=== PATIENT | male | born 1965 | race Caucasian/White ===

== ENCOUNTER 2021-03-10 12:04 | Inpatient (IN) ==
[2021-03-10 14:53] LABS: Basophils % 0.3 %; Hematocrit 31.5 % (37.5-50.1); Hemoglobin 10.6 g/dL (12.9-16.9); Immature Granulocytes % 0.7 % (0-4); Lymphocytes # 0.5 K/mcL (0.6-4.6); Lymphocytes % 15.8 %; Mean Corpuscular HGB Conc 33.7 g/dL (31.6-35.5); Mean Corpuscular Hemoglobin 29.1 pg (28.0-33.3); Mean Corpuscular Volume 86.5 fL (83.0-100.0); Mean Platelet Volume 11.4 fL (9.4-12.4); Monocytes # 0.1 K/mcL (0.0-1.3); Monocytes % 4.3 %; Neutrophils # 2.4 K/mcL (1.6-8.9); Platelet Count 85 K/mcL (140-400); Red Blood Count 3.64 M/mcL (4.19-5.50); Red Cell Distribution Width 15.3 % (11.5-14.5); Segmented Neutrophils % 78.9 %
[2021-03-10 15:10] LABS: Alanine Aminotransferase 9 Units/L (7-52); Albumin 3.2 g/dL (3.5-5.7); Albumin/Globulin Ratio 1.1 (1.1-2.2); Alkaline Phosphatase 90 Units/L (34-104); Aspartate Amino Transferase 35 Units/L (13-39); BUN/Creatinine Ratio 25 (6-26); Bilirubin,Direct 0.2 mg/dL (0.0-0.2); Bilirubin,Indirect 0.5 mg/dL (0.0-1.0); Bilirubin,Total 0.7 mg/dL (0.3-1.0); Blood Urea Nitrogen 15 mg/dL (6-20); Calcium 8.4 mg/dL (8.6-10.3); Carbon Dioxide 24 mEq/L (23-29); Chloride 97 mEq/L (98-107); Globulin 2.9 g/dL (2.4-3.5); Glucose 116 mg/dL (70-105); Osmolality,Calculated 270 (280-300); Potassium 3.4 mEq/L (3.5-5.1); Sodium 129 mEq/L (136-145); Total Protein 6.1 g/dL (6.4-8.9); Troponin I < 0.03 ng/mL (< 0.04); eGFR For African Americans > 60 (> 60); eGFR For Non-African Americans > 60 (> 60)
[2021-03-10 15:11] LABS: Thyroid Stimulating Hormone 2.131 mcIU/mL (0.340-5.600)
[2021-03-10 15:16] LABS: Influenza A PCR Negative (Negative); Influenza B PCR Negative (Negative); Resp. Syncytial Virus PCR Negative (Negative); SARS-CoV-2 by PCR (In House) Negative (Negative)
[2021-03-10 15:42] LABS: Bacteria,Urine Few per hpf (None-Few); Bilirubin,Urine Small (Negative); Blood,Urine Negative (Negative); Calcium Oxalate Crystals,Urine Present per hpf; Clarity,Urine Turbid (Clear); Color,Urine Yellow (Yellow); Glucose,Urine (UA) Normal (Normal); Hyaline Casts,Urine Few per lpf (None Seen); Ketones,Urine Negative (Negative); Leukocyte Esterase,Urine Negative (Negative); Mucus,Urine Many per lpf (None-Few); Nitrite,Urine Negative (Negative); Protein,Urine 50 mg/dL (Neg-Trace); Renal Epithelial Cells,Urine Few per hpf (None-Few); Specific Gravity,Urine > 1.030 (1.010-1.025)
[2021-03-10] MEDS ORDERED: 0.9 % Sodium Chloride 500 ML IVC ONE (15:56)
[2021-03-10] MEDS ORDERED: Naloxone 0.4 MG/ML INJ IVP PRN (19:50)
[2021-03-10] MEDS ORDERED: Ondansetron ODT 4 MG TAB.RAPDIS SL PRN (19:50)
[2021-03-10 21:55] LABS: Magnesium 2.1 mg/dL (1.6-2.6); Phosphorous 3.8 mg/dL (2.7-4.5)
[2021-03-10 21:57] LABS: Creatine Kinase 185 Units/L (30-223); Lipase 33 Units/L (11-82)
[2021-03-10] MEDS: 0.9 % Sodium Chloride 1,000 ML IVC SCH (23:45)
[2021-03-11 05:35] LABS: Hematocrit 27.4 % (37.5-50.1); Hemoglobin 9.1 g/dL (12.9-16.9); Mean Corpuscular HGB Conc 33.2 g/dL (31.6-35.5); Mean Corpuscular Hemoglobin 29.6 pg (28.0-33.3); Mean Corpuscular Volume 89.3 fL (83.0-100.0); Red Blood Count 3.07 M/mcL (4.19-5.50); Red Cell Distribution Width 15.7 % (11.5-14.5); White Blood Count 3.4 K/mcL (4.3-11.1)
[2021-03-11 05:36] LABS: Platelet Count 71 K/mcL (140-400)
[2021-03-11 05:56] LABS: Albumin 2.8 g/dL (3.5-5.7); Albumin/Globulin Ratio 1.1 (1.1-2.2); Bilirubin,Direct 0.3 mg/dL (0.0-0.2); Bilirubin,Indirect 0.4 mg/dL (0.0-1.0); Bilirubin,Total 0.7 mg/dL (0.3-1.0); Chol/HDL Ratio 10.1 (0-4.9); Globulin 2.5 g/dL (2.4-3.5); Total Protein 5.3 g/dL (6.4-8.9)
[2021-03-11 05:58] LABS: BUN/Creatinine Ratio 18 (6-26); Blood Urea Nitrogen 13 mg/dL (6-20); Calcium 8.1 mg/dL (8.6-10.3); Carbon Dioxide 26 mEq/L (23-29); Chloride 99 mEq/L (98-107); Glucose 97 mg/dL (70-105); Osmolality,Calculated 274 (280-300); Potassium 3.6 mEq/L (3.5-5.1); Sodium 132 mEq/L (136-145); eGFR For African Americans > 60 (> 60); eGFR For Non-African Americans > 60 (> 60)
[2021-03-11 06:57] LABS: Anisocytosis 1+ (Not Present); Lymphocytes # 0.6 K/mcL (0.6-4.6); Monocytes # 0.2 K/mcL (0.0-1.3); Neutrophils # 2.6 K/mcL (1.6-8.9); Platelet Estimate Decreased (Normal); Reactive Lymphocytes Present (Not Present); Toxic Granulation Present (Not Present)
[2021-03-11] MEDS: Sulfamethoxazole/Trimeth SS 1 TAB PO SCH (08:09)
[2021-03-11] MEDS: Nystatin SUSP 5 ML UD.LIQ PO SCH ×4 (08:09→23:36)
[2021-03-11] MEDS: 0.9 % Sodium Chloride 1,000 ML IVC SCH ×2 (08:10→17:30)
[2021-03-11] MEDS ORDERED: Azithromycin 500 MG in 0.9 % Sodium Chloride 250 ML IVPB SCH (09:00)
[2021-03-11] MEDS ORDERED: Azithromycin 250 MG TABLET PO ONE (13:18)
[2021-03-11] MEDS ORDERED: Isovue-370 500 ML BOTTLE IVP ONE ×2 (15:50→15:57)
[2021-03-11] MEDS: Piperacillin/Tazobactam 3.375 GM in 0.9 % Sodium Chloride Mini Bag 100 ML IVPB SCH ×2 (16:33→23:48)
[2021-03-11] MEDS: Acetaminophen 325 MG TABLET PO PRN (16:33)
[2021-03-11] MEDS: Melatonin 3 MG TABLET PO PRN (23:38)
[2021-03-12 07:34] LABS: Hematocrit 26.7 % (37.5-50.1); Hemoglobin 8.7 g/dL (12.9-16.9); Immature Platelets 3.8 % (1.1-6.1); Mean Corpuscular HGB Conc 32.6 g/dL (31.6-35.5); Mean Corpuscular Hemoglobin 28.8 pg (28.0-33.3); Mean Corpuscular Volume 88.4 fL (83.0-100.0); Mean Platelet Volume 11.3 fL (9.4-12.4); Red Blood Count 3.02 M/mcL (4.19-5.50); Red Cell Distribution Width 15.4 % (11.5-14.5); White Blood Count 1.9 K/mcL (4.3-11.1)
[2021-03-12 07:36] LABS: Platelet Count 63 K/mcL (140-400)
[2021-03-12 07:49] LABS: Alanine Aminotransferase 10 Units/L (7-52); Albumin 2.5 g/dL (3.5-5.7); Alkaline Phosphatase 127 Units/L (34-104); Aspartate Amino Transferase 43 Units/L (13-39); BUN/Creatinine Ratio 20 (6-26); Bilirubin,Total 0.6 mg/dL (0.3-1.0); Blood Urea Nitrogen 12 mg/dL (6-20); Calcium 7.7 mg/dL (8.6-10.3); Carbon Dioxide 25 mEq/L (23-29); Chloride 102 mEq/L (98-107); Globulin 2.6 g/dL (2.4-3.5); Glucose 94 mg/dL (70-105); Osmolality,Calculated 274 (280-300); Phosphorous 3.3 mg/dL (2.7-4.5); Potassium 3.4 mEq/L (3.5-5.1); Sodium 132 mEq/L (136-145); Total Protein 5.1 g/dL (6.4-8.9); eGFR For African Americans > 60 (> 60); eGFR For Non-African Americans > 60 (> 60)
[2021-03-12 08:12] LABS: Lymphocytes # 0.2 K/mcL (0.6-4.6); Neutrophils # 1.6 K/mcL (1.6-8.9); Platelet Estimate Decreased (Normal)
[2021-03-12 08:13] LABS: Ovalocytes 2+ (Not Present)
[2021-03-12] MEDS: Piperacillin/Tazobactam 3.375 GM in 0.9 % Sodium Chloride Mini Bag 100 ML IVPB SCH ×2 (08:24→16:57)
[2021-03-12] MEDS: 0.9 % Sodium Chloride 1,000 ML IVC SCH (08:26)
[2021-03-12] MEDS: Nystatin SUSP 5 ML UD.LIQ PO SCH ×4 (09:04→20:39)
[2021-03-12] MEDS: Sulfamethoxazole/Trimeth SS 1 TAB PO SCH (09:06)
[2021-03-12 17:02] LABS: Basophils % 0.5 %; Hemoglobin 9.5 g/dL (12.9-16.9); Mean Corpuscular Volume 88.9 fL (83.0-100.0)
[2021-03-12 17:03] LABS: Hematocrit 27.9 % (37.5-50.1); Immature Platelets 3.2 % (1.1-6.1); Lymphocytes # 0.5 K/mcL (0.6-4.6); Lymphocytes % 25.2 %; Mean Corpuscular HGB Conc 34.1 g/dL (31.6-35.5); Mean Corpuscular Hemoglobin 30.3 pg (28.0-33.3); Monocytes # 0.1 K/mcL (0.0-1.3); Monocytes % 5.4 %; Neutrophils # 1.4 K/mcL (1.6-8.9); Red Blood Count 3.14 M/mcL (4.19-5.50); Red Cell Distribution Width 15.5 % (11.5-14.5); Segmented Neutrophils % 67.9 %
[2021-03-12 17:11] LABS: Platelet Count 69 K/mcL (140-400)
[2021-03-12 17:33] LABS: Platelet Estimate Decreased (Normal)
[2021-03-12 17:37] LABS: Toxic Granulation Present (Not Present)
[2021-03-12] MEDS: Melatonin 3 MG TABLET PO PRN (20:39)
[2021-03-12] MEDS: Acetaminophen 325 MG TABLET PO PRN (20:39)
[2021-03-13] MEDS: Piperacillin/Tazobactam 3.375 GM in 0.9 % Sodium Chloride Mini Bag 100 ML IVPB SCH ×3 (00:18→17:36)
[2021-03-13] MEDS: Acetaminophen 325 MG TABLET PO PRN ×2 (04:30→21:33)
[2021-03-13] MEDS: Sulfamethoxazole/Trimeth SS 1 TAB PO SCH (09:21)
[2021-03-13] MEDS: Nystatin SUSP 5 ML UD.LIQ PO SCH ×4 (09:21→21:33)
[2021-03-13 12:04] LABS: INR 1.3; Prothrombin Time 14.5 Seconds (9.4-12.1)
[2021-03-13] MEDS: Gabapentin 100 MG CAPSULE PO SCH ×2 (13:43→21:33)
[2021-03-13 15:03] LABS: Hematocrit 33.1 % (37.5-50.1); Hemoglobin 11.2 g/dL (12.9-16.9); Immature Platelets 3.4 % (1.1-6.1); Mean Corpuscular HGB Conc 33.8 g/dL (31.6-35.5); Mean Corpuscular Hemoglobin 29.6 pg (28.0-33.3); Mean Corpuscular Volume 87.3 fL (83.0-100.0); Mean Platelet Volume 11.4 fL (9.4-12.4); Red Blood Count 3.79 M/mcL (4.19-5.50); Red Cell Distribution Width 15.4 % (11.5-14.5); White Blood Count 2.3 K/mcL (4.3-11.1)
[2021-03-13 15:20] LABS: BUN/Creatinine Ratio 20 (6-26); Blood Urea Nitrogen 11 mg/dL (6-20); Calcium 7.8 mg/dL (8.6-10.3); Carbon Dioxide 25 mEq/L (23-29); Chloride 100 mEq/L (98-107); Glucose 90 mg/dL (70-105); Osmolality,Calculated 269 (280-300); Potassium 3.7 mEq/L (3.5-5.1); Sodium 130 mEq/L (136-145); eGFR For African Americans > 60 (> 60); eGFR For Non-African Americans > 60 (> 60)
[2021-03-13] MEDS: Melatonin 3 MG TABLET PO PRN (21:33)
[2021-03-14] MEDS: Piperacillin/Tazobactam 3.375 GM in 0.9 % Sodium Chloride Mini Bag 100 ML IVPB SCH ×3 (00:03→16:03)
[2021-03-14 03:06] LABS: Hematocrit 33.4 % (37.5-50.1); Hemoglobin 11.1 g/dL (12.9-16.9); Immature Platelets 3.5 % (1.1-6.1); Mean Corpuscular HGB Conc 33.2 g/dL (31.6-35.5); Mean Corpuscular Hemoglobin 29.1 pg (28.0-33.3); Mean Corpuscular Volume 87.7 fL (83.0-100.0); Mean Platelet Volume 11.2 fL (9.4-12.4); Red Blood Count 3.81 M/mcL (4.19-5.50); Red Cell Distribution Width 15.4 % (11.5-14.5); White Blood Count 2.3 K/mcL (4.3-11.1)
[2021-03-14] MEDS: Acetaminophen 325 MG TABLET PO PRN ×2 (03:11→21:22)
[2021-03-14 03:27] LABS: BUN/Creatinine Ratio 18 (6-26); Blood Urea Nitrogen 11 mg/dL (6-20); Carbon Dioxide 27 mEq/L (23-29); Chloride 99 mEq/L (98-107); Glucose 96 mg/dL (70-105); Osmolality,Calculated 267 (280-300); Sodium 129 mEq/L (136-145); eGFR For African Americans > 60 (> 60); eGFR For Non-African Americans > 60 (> 60)
[2021-03-14] MEDS: Nystatin SUSP 5 ML UD.LIQ PO SCH ×4 (07:40→21:06)
[2021-03-14] MEDS: Gabapentin 100 MG CAPSULE PO SCH (07:41)
[2021-03-14] MEDS: Sulfamethoxazole/Trimeth SS 1 TAB PO SCH (07:41)
[2021-03-14] MEDS ORDERED: Gabapentin 100 MG CAPSULE PO ONE (09:44)
[2021-03-14] MEDS: Furosemide 20 MG TABLET PO SCH (10:24)
[2021-03-14 10:33] LABS: Lactate Dehydrogenase 325 Units/L (140-271); Uric Acid 1.7 mg/dL (2.3-7.6)
[2021-03-14] MEDS: Gabapentin 300 MG CAPSULE PO SCH ×2 (16:03→21:06)
[2021-03-15] MEDS: Piperacillin/Tazobactam 3.375 GM in 0.9 % Sodium Chloride Mini Bag 100 ML IVPB SCH ×4 (00:24→23:57)
[2021-03-15] MEDS: 0.9 % Sodium Chloride 500 ML IVC ONE (00:25)
[2021-03-15 01:45] LABS: Hematocrit 27.7 % (37.5-50.1); Hemoglobin 9.3 g/dL (12.9-16.9); Immature Platelets 3.4 % (1.1-6.1); Mean Corpuscular HGB Conc 33.6 g/dL (31.6-35.5); Mean Corpuscular Hemoglobin 29.3 pg (28.0-33.3); Mean Corpuscular Volume 87.4 fL (83.0-100.0); Mean Platelet Volume 10.5 fL (9.4-12.4); Red Blood Count 3.17 M/mcL (4.19-5.50); Red Cell Distribution Width 15.4 % (11.5-14.5); White Blood Count 1.6 K/mcL (4.3-11.1)
[2021-03-15 01:57] LABS: BUN/Creatinine Ratio 19 (6-26); Blood Urea Nitrogen 15 mg/dL (6-20); Calcium 7.4 mg/dL (8.6-10.3); Carbon Dioxide 25 mEq/L (23-29); Chloride 98 mEq/L (98-107); Glucose 110 mg/dL (70-105); Osmolality,Calculated 269 (280-300); Sodium 129 mEq/L (136-145); eGFR For African Americans > 60 (> 60); eGFR For Non-African Americans > 60 (> 60)
[2021-03-15] MEDS ORDERED: *HR* Metoprolol 5 MG/5 ML VIAL IVP ONE (05:48)
[2021-03-15] MEDS: Sulfamethoxazole/Trimeth SS 1 TAB PO SCH (08:53)
[2021-03-15] MEDS: Gabapentin 300 MG CAPSULE PO SCH ×3 (08:53→20:32)
[2021-03-15] MEDS: Nystatin SUSP 5 ML UD.LIQ PO SCH ×4 (08:53→20:32)
[2021-03-15] MEDS: Furosemide 20 MG TABLET PO SCH (08:53)
[2021-03-15 08:59] LABS: VBG Ionized Calcium 1.09 mmol/L (1.15-1.35)
[2021-03-15 10:43] LABS: Magnesium 1.9 mg/dL (1.6-2.6); Phosphorous 3.5 mg/dL (2.7-4.5)
[2021-03-16] MEDS: Acetaminophen 325 MG TABLET PO PRN ×2 (04:14→15:59)
[2021-03-16 05:37] LABS: Hematocrit 27.1 % (37.5-50.1); Hemoglobin 9.2 g/dL (12.9-16.9); Immature Platelets 4.2 % (1.1-6.1); Mean Corpuscular HGB Conc 33.9 g/dL (31.6-35.5); Mean Corpuscular Hemoglobin 29.2 pg (28.0-33.3); Mean Platelet Volume 11.2 fL (9.4-12.4); Red Blood Count 3.15 M/mcL (4.19-5.50); Red Cell Distribution Width 15.4 % (11.5-14.5); White Blood Count 1.9 K/mcL (4.3-11.1)
[2021-03-16 05:50] LABS: BUN/Creatinine Ratio 23 (6-26); Blood Urea Nitrogen 15 mg/dL (6-20); Calcium 7.6 mg/dL (8.6-10.3); Carbon Dioxide 25 mEq/L (23-29); Chloride 94 mEq/L (98-107); Glucose 106 mg/dL (70-105); Osmolality,Calculated 261 (280-300); Potassium 3.9 mEq/L (3.5-5.1); Sodium 125 mEq/L (136-145); eGFR For African Americans > 60 (> 60); eGFR For Non-African Americans > 60 (> 60)
[2021-03-16] MEDS: Piperacillin/Tazobactam 3.375 GM in 0.9 % Sodium Chloride Mini Bag 100 ML IVPB SCH ×2 (09:54→15:18)
[2021-03-16] MEDS: Gabapentin 300 MG CAPSULE PO SCH ×3 (09:55→20:19)
[2021-03-16] MEDS: Sulfamethoxazole/Trimeth SS 1 TAB PO SCH (09:55)
[2021-03-16] MEDS: Furosemide 20 MG TABLET PO SCH (09:55)
[2021-03-16] MEDS: Nystatin SUSP 5 ML UD.LIQ PO SCH ×4 (09:55→20:15)
[2021-03-16 14:31] LABS: Toxoplasma gondii Ab, IgG <3.0 IU/mL; Toxoplasma gondii Ab, IgM <3.0 AU/mL (<=7.9)
[2021-03-16] MEDS ORDERED: Vancomycin (wt based) 1,000 MG VIAL IVPB SCH (17:00)
[2021-03-16] MEDS ORDERED: 0.9 % Sodium Chloride 1,000 ML IV ONE (19:54)
[2021-03-17] MEDS: Piperacillin/Tazobactam 3.375 GM in 0.9 % Sodium Chloride Mini Bag 100 ML IVPB SCH ×3 (01:18→17:36)
[2021-03-17] MEDS ORDERED: 0.9 % Sodium Chloride 1,000 ML IVC ONE (03:30)
[2021-03-17 05:43] LABS: Hematocrit 23.7 % (37.5-50.1); Hemoglobin 7.8 g/dL (12.9-16.9); Mean Corpuscular HGB Conc 32.9 g/dL (31.6-35.5); Mean Corpuscular Hemoglobin 29.3 pg (28.0-33.3); Mean Corpuscular Volume 89.1 fL (83.0-100.0); Mean Platelet Volume 10.2 fL (9.4-12.4); Red Blood Count 2.66 M/mcL (4.19-5.50); Red Cell Distribution Width 15.4 % (11.5-14.5); White Blood Count 1.4 K/mcL (4.3-11.1)
[2021-03-17 05:45] LABS: Platelet Count 49 K/mcL (140-400)
[2021-03-17 07:54] LABS: BUN/Creatinine Ratio 19 (6-26); Blood Urea Nitrogen 13 mg/dL (6-20); Calcium 7.1 mg/dL (8.6-10.3); Carbon Dioxide 26 mEq/L (23-29); Chloride 99 mEq/L (98-107); Glucose 114 mg/dL (70-105); Osmolality,Calculated 269 (280-300); Potassium 3.7 mEq/L (3.5-5.1); Sodium 129 mEq/L (136-145); eGFR For African Americans > 60 (> 60); eGFR For Non-African Americans > 60 (> 60)
[2021-03-17] MEDS: Gabapentin 300 MG CAPSULE PO SCH ×3 (08:42→21:26)
[2021-03-17] MEDS: Nystatin SUSP 5 ML UD.LIQ PO SCH ×3 (08:42→17:37)
[2021-03-17] MEDS: Sulfamethoxazole/Trimeth SS 1 TAB PO SCH (08:42)
[2021-03-17] MEDS ORDERED: 0.9 % Sodium Chloride 500 ML ONE ×2 (14:15→16:30)
[2021-03-17] MEDS: 0.9 % Sodium Chloride 500 ML IVC ONE ×2 (14:16→15:57)
[2021-03-17 14:18] LABS: Influenza A PCR Negative (Negative); Influenza B PCR Negative (Negative); Resp. Syncytial Virus PCR Negative (Negative); SARS-CoV-2 by PCR (In House) Negative (Negative)
[2021-03-17 14:42] LABS: HIV-1 Viral Load Interp DETECTED (Not Detected)
[2021-03-17] MEDS ORDERED: Ringers Solution, Lactated 500 ML IV ONE (16:30)
[2021-03-17 17:08] LABS: VBG Ionized Calcium 1.11 mmol/L (1.15-1.35)
[2021-03-17] MEDS ORDERED: *HR* Metoprolol 5 MG/5 ML VIAL IVP ONE (17:24)
[2021-03-17 17:37] LABS: BUN/Creatinine Ratio 22 (6-26); Blood Urea Nitrogen 13 mg/dL (6-20); Calcium 7.7 mg/dL (8.6-10.3); Carbon Dioxide 26 mEq/L (23-29); Chloride 95 mEq/L (98-107); Glucose 96 mg/dL (70-105); Osmolality,Calculated 262 (280-300); Potassium 4.4 mEq/L (3.5-5.1); Sodium 126 mEq/L (136-145); eGFR For African Americans > 60 (> 60); eGFR For Non-African Americans > 60 (> 60)
[2021-03-17] MEDS: Acetaminophen 325 MG TABLET PO PRN (17:57)
[2021-03-17] MEDS: levoFLOXacin 500 MG TABLET PO SCH (19:35)
[2021-03-17] MEDS: D5% in Water 50 ML IVPB SCH ×2 (21:21→23:35)
[2021-03-17] MEDS: AMPHOTERICIN B LIPID COMPLEX IVPB SCH (21:30)
[2021-03-17] MEDS: D5 IVPB SCH (21:30)
[2021-03-17] MEDS: WATER IVPB SCH (21:30)
[2021-03-17] MEDS ORDERED: Calcium Gluconate 1gm/50mL 1 GM/50 ML BAG IVPB ONE (23:18)
[2021-03-18] MEDS: Acetaminophen 325 MG TABLET PO PRN (01:21)
[2021-03-18] MEDS ORDERED: 0.9 % Sodium Chloride 1,000 ML IVC ONE (04:18)
[2021-03-18 04:49] LABS: BUN/Creatinine Ratio 24 (6-26); Blood Urea Nitrogen 15 mg/dL (6-20); Calcium 7.7 mg/dL (8.6-10.3); Carbon Dioxide 23 mEq/L (23-29); Chloride 99 mEq/L (98-107); Glucose 96 mg/dL (70-105); Osmolality,Calculated 267 (280-300); Potassium 3.7 mEq/L (3.5-5.1); Sodium 128 mEq/L (136-145); eGFR For African Americans > 60 (> 60); eGFR For Non-African Americans > 60 (> 60)
[2021-03-18 04:53] LABS: Mean Corpuscular Hemoglobin 29.7 pg (28.0-33.3)
[2021-03-18 04:55] LABS: Hematocrit 27.2 % (37.5-50.1); Hemoglobin 9.2 g/dL (12.9-16.9); Immature Platelets 5.3 % (1.1-6.1); Mean Corpuscular HGB Conc 33.8 g/dL (31.6-35.5); Mean Corpuscular Volume 87.7 fL (83.0-100.0); Red Cell Distribution Width 15.2 % (11.5-14.5)
[2021-03-18 05:05] LABS: INR 1.2; Prothrombin Time 12.9 Seconds (9.4-12.1)
[2021-03-18 05:17] LABS: Platelet Count 47 K/mcL (140-400)
[2021-03-18] MEDS: levoFLOXacin 500 MG TABLET PO SCH (08:36)
[2021-03-18] MEDS: Gabapentin 300 MG CAPSULE PO SCH ×3 (08:36→19:59)
[2021-03-18] MEDS: Sulfamethoxazole/Trimeth SS 1 TAB PO SCH (08:36)
[2021-03-18 15:00] LABS: Cytomegalovirus DNA (PCR) DETECTED
[2021-03-18] MEDS: Albumin 25% 25gram/100mL 25 GM/100 ML IV.SOLN IVC SCH ×2 (15:34→16:45)
[2021-03-18] MEDS ORDERED: *HR* Dextrose 50 % in Water (Vial) 50 ML VIAL ONE (20:20)
[2021-03-18] MEDS: D5% in Water 50 ML IVPB SCH (21:02)
[2021-03-18] MEDS: WATER IVPB SCH (21:10)
[2021-03-18] MEDS: D5 IVPB SCH (21:10)
[2021-03-18] MEDS: AMPHOTERICIN B LIPID COMPLEX IVPB SCH (21:10)
[2021-03-18] MEDS ORDERED: Acetaminophen IV 1,000 MG/100 ML BAG IVPB ONE (23:58)
[2021-03-19] MEDS ORDERED: methylPREDNISolone 125 MG/2 ML VIAL IVP ONE (00:28)
[2021-03-19] MEDS ORDERED: *HR* Metoprolol 5 MG/5 ML VIAL IVP ONE (01:48)
[2021-03-19] MEDS: Acetaminophen 325 MG TABLET PO PRN (01:59)
[2021-03-19 05:43] LABS: Hematocrit 24.8 % (37.5-50.1); Hemoglobin 8.3 g/dL (12.9-16.9); Lymphocytes # 0.3 K/mcL (0.6-4.6); Lymphocytes % 28.7 %; Mean Corpuscular HGB Conc 33.5 g/dL (31.6-35.5); Mean Corpuscular Hemoglobin 29.3 pg (28.0-33.3); Mean Corpuscular Volume 87.6 fL (83.0-100.0); Mean Platelet Volume 10.5 fL (9.4-12.4); Neutrophils # 0.7 K/mcL (1.6-8.9); Red Blood Count 2.83 M/mcL (4.19-5.50); Red Cell Distribution Width 15.4 % (11.5-14.5); Segmented Neutrophils % 66.3 %
[2021-03-19 05:46] LABS: Platelet Count 51 K/mcL (140-400)
[2021-03-19 06:02] LABS: Alanine Aminotransferase 7 Units/L (7-52); Albumin 2.7 g/dL (3.5-5.7); Albumin 2.8 g/dL (3.5-5.7); Albumin/Globulin Ratio 1.1 (1.1-2.2); Alkaline Phosphatase 97 Units/L (34-104); Aspartate Amino Transferase 28 Units/L (13-39); BUN/Creatinine Ratio 24 (6-26); Bilirubin,Direct 0.2 mg/dL (0.0-0.2); Bilirubin,Indirect 0.3 mg/dL (0.0-1.0); Bilirubin,Total 0.5 mg/dL (0.3-1.0); Blood Urea Nitrogen 15 mg/dL (6-20); Calcium 7.9 mg/dL (8.6-10.3); Carbon Dioxide 26 mEq/L (23-29); Chloride 100 mEq/L (98-107); Globulin 2.6 g/dL (2.4-3.5); Globulin 2.7 g/dL (2.4-3.5); Glucose 136 mg/dL (70-105); Lactate Dehydrogenase 275 Units/L (140-271); Magnesium 2.2 mg/dL (1.6-2.6); Osmolality,Calculated 275 (280-300); Phosphorous 4.1 mg/dL (2.7-4.5); Potassium 3.8 mEq/L (3.5-5.1); Sodium 131 mEq/L (136-145); Total Protein 5.4 g/dL (6.4-8.9); eGFR For African Americans > 60 (> 60); eGFR For Non-African Americans > 60 (> 60)
[2021-03-19] MEDS: Sulfamethoxazole/Trimeth SS 1 TAB PO SCH (07:38)
[2021-03-19] MEDS: Gabapentin 300 MG CAPSULE PO SCH ×3 (07:40→20:14)
[2021-03-19] MEDS: levoFLOXacin 500 MG TABLET PO SCH (07:40)
[2021-03-19] MEDS: D5% in Water 50 ML IVPB SCH (22:28)
[2021-03-19] MEDS: WATER IVPB SCH (22:48)
[2021-03-19] MEDS: AMPHOTERICIN B LIPID COMPLEX IVPB SCH (22:48)
[2021-03-19] MEDS: D5 IVPB SCH (22:48)
[2021-03-20] MEDS: D5% in Water 50 ML IVPB SCH ×3 (01:00→21:33)
[2021-03-20 06:17] LABS: Albumin 2.8 g/dL (3.5-5.7); Albumin/Globulin Ratio 1.1 (1.1-2.2); Bilirubin,Direct 0.2 mg/dL (0.0-0.2); Bilirubin,Indirect 0.3 mg/dL (0.0-1.0); Bilirubin,Total 0.5 mg/dL (0.3-1.0); Globulin 2.5 g/dL (2.4-3.5); Magnesium 2.4 mg/dL (1.6-2.6); Phosphorous 4.4 mg/dL (2.7-4.5); Total Protein 5.3 g/dL (6.4-8.9)
[2021-03-20] MEDS: levoFLOXacin 500 MG TABLET PO SCH (08:01)
[2021-03-20] MEDS: Sulfamethoxazole/Trimeth SS 1 TAB PO SCH (08:01)
[2021-03-20] MEDS: Gabapentin 300 MG CAPSULE PO SCH ×3 (08:01→19:41)
[2021-03-20 13:10] LABS: Mean Corpuscular Hemoglobin 29.1 pg (28.0-33.3); Red Blood Count 3.09 M/mcL (4.19-5.50)
[2021-03-20 13:12] LABS: Immature Granulocytes % 0.7 % (0-4); Immature Platelets 5.5 % (1.1-6.1); Lymphocytes # 0.3 K/mcL (0.6-4.6); Lymphocytes % 18.7 %; Mean Corpuscular HGB Conc 33.3 g/dL (31.6-35.5); Mean Corpuscular Volume 87.4 fL (83.0-100.0); Monocytes # 0.1 K/mcL (0.0-1.3); Monocytes % 5.8 %; Neutrophils # 1.1 K/mcL (1.6-8.9); Platelet Count 54 K/mcL (140-400); Red Cell Distribution Width 15.5 % (11.5-14.5); Segmented Neutrophils % 74.8 %; White Blood Count 1.4 K/mcL (4.3-11.1)
[2021-03-20 13:29] LABS: Platelet Estimate Decreased (Normal)
[2021-03-20 13:35] LABS: BUN/Creatinine Ratio 39 (6-26); Blood Urea Nitrogen 22 mg/dL (6-20); Carbon Dioxide 19 mEq/L (23-29); Chloride 114 mEq/L (98-107); Glucose 95 mg/dL (70-105); Osmolality,Calculated 291 (280-300); Potassium 2.8 mEq/L (3.5-5.1); Sodium 139 mEq/L (136-145); eGFR For African Americans > 60 (> 60); eGFR For Non-African Americans > 60 (> 60)
[2021-03-20] MEDS ORDERED: Calcium Gluconate 1gm/50mL 1 GM/50 ML BAG IVPB ONE (13:42)
[2021-03-20 18:43] LABS: JC Virus PCR Source BLOOD
[2021-03-20] MEDS: D5 IVPB SCH (19:36)
[2021-03-20] MEDS: WATER IVPB SCH (19:36)
[2021-03-20] MEDS: AMPHOTERICIN B LIPID COMPLEX IVPB SCH (19:36)
[2021-03-20] MEDS: Acetaminophen 325 MG TABLET PO PRN (23:23)
[2021-03-21 04:02] LABS: Hematocrit 24.6 % (37.5-50.1); Hemoglobin 8.1 g/dL (12.9-16.9); Immature Granulocytes % 2.7 % (0-4); Lymphocytes # 0.1 K/mcL (0.6-4.6); Mean Corpuscular HGB Conc 32.9 g/dL (31.6-35.5); Mean Corpuscular Hemoglobin 29.1 pg (28.0-33.3); Mean Corpuscular Volume 88.5 fL (83.0-100.0); Mean Platelet Volume 9.9 fL (9.4-12.4); Monocytes # 0.1 K/mcL (0.0-1.3); Monocytes % 10.7 %; Red Blood Count 2.78 M/mcL (4.19-5.50); Red Cell Distribution Width 15.6 % (11.5-14.5); Segmented Neutrophils % 70.6 %
[2021-03-21 04:10] LABS: Neutrophils # 0.6 K/mcL (1.6-8.9); Platelet Count 52 K/mcL (140-400); White Blood Count 0.8 K/mcL (4.3-11.1)
[2021-03-21 04:19] LABS: BUN/Creatinine Ratio 40 (6-26); Bilirubin,Direct 0.1 mg/dL (0.0-0.2); Bilirubin,Indirect 0.4 mg/dL (0.0-1.0); Bilirubin,Total 0.5 mg/dL (0.3-1.0); Blood Urea Nitrogen 35 mg/dL (6-20); Carbon Dioxide 25 mEq/L (23-29); Chloride 105 mEq/L (98-107); Glucose 99 mg/dL (70-105); Magnesium 2.3 mg/dL (1.6-2.6); Osmolality,Calculated 284 (280-300); Phosphorous 3.4 mg/dL (2.7-4.5); Potassium 3.5 mEq/L (3.5-5.1); Sodium 133 mEq/L (136-145); eGFR For African Americans > 60 (> 60); eGFR For Non-African Americans > 60 (> 60)
[2021-03-21 04:24] LABS: Platelet Estimate Decreased (Normal)
[2021-03-21 04:25] LABS: Poikilocytosis 1+ (Not Present)
[2021-03-21 06:59] LABS: JC Virus Result DETECTED
[2021-03-21] MEDS: Sulfamethoxazole/Trimeth SS 1 TAB PO SCH (08:31)
[2021-03-21] MEDS: Gabapentin 300 MG CAPSULE PO SCH ×3 (08:31→20:30)
[2021-03-21] MEDS: levoFLOXacin 500 MG TABLET PO SCH (08:31)
[2021-03-21] MEDS: Acetaminophen 325 MG TABLET PO PRN (08:36)
[2021-03-21] MEDS ORDERED: Ringers Solution, Lactated 500 ML IVC ONE (11:12)
[2021-03-21] MEDS: D5% in Water 50 ML IVPB SCH (19:13)
[2021-03-22 00:11] LABS: A.galactomannan Ag Index 0.01
[2021-03-22] MEDS: Acetaminophen 325 MG TABLET PO PRN ×2 (04:35→14:15)
[2021-03-22 05:57] LABS: Hemoglobin 8.2 g/dL (12.9-16.9); Red Cell Distribution Width 15.6 % (11.5-14.5)
[2021-03-22 05:58] LABS: Basophils % 0.6 %; Hematocrit 24.6 % (37.5-50.1); Immature Granulocytes % 1.2 % (0-4); Immature Platelets 2.8 % (1.1-6.1); Lymphocytes # 0.3 K/mcL (0.6-4.6); Lymphocytes % 16.4 %; Mean Corpuscular HGB Conc 33.3 g/dL (31.6-35.5); Mean Corpuscular Hemoglobin 29.6 pg (28.0-33.3); Mean Corpuscular Volume 88.8 fL (83.0-100.0); Mean Platelet Volume 10.7 fL (9.4-12.4); Monocytes # 0.1 K/mcL (0.0-1.3); Monocytes % 4.2 %; Neutrophils # 1.3 K/mcL (1.6-8.9); Red Blood Count 2.77 M/mcL (4.19-5.50); Segmented Neutrophils % 77.6 %; White Blood Count 1.7 K/mcL (4.3-11.1)
[2021-03-22 06:05] LABS: Platelet Count 46 K/mcL (140-400)
[2021-03-22 06:27] LABS: BUN/Creatinine Ratio 30 (6-26); Blood Urea Nitrogen 21 mg/dL (6-20); Calcium 8.3 mg/dL (8.6-10.3); Carbon Dioxide 24 mEq/L (23-29); Chloride 101 mEq/L (98-107); Glucose 97 mg/dL (70-105); Osmolality,Calculated 277 (280-300); Potassium 3.9 mEq/L (3.5-5.1); Sodium 132 mEq/L (136-145); eGFR For African Americans > 60 (> 60); eGFR For Non-African Americans > 60 (> 60)
[2021-03-22 06:43] LABS: Poikilocytosis 1+ (Not Present); Tear Drop Cells 1+ (Not Present)
[2021-03-22 06:44] LABS: Platelet Estimate Decreased (Normal)
[2021-03-22] MEDS: Sulfamethoxazole/Trimeth SS 1 TAB PO SCH (10:10)
[2021-03-22] MEDS: levoFLOXacin 500 MG TABLET PO SCH (10:10)
[2021-03-22] MEDS: Gabapentin 300 MG CAPSULE PO SCH ×3 (10:11→22:30)
[2021-03-23] MEDS: Acetaminophen 325 MG TABLET PO PRN (03:40)
[2021-03-23 04:13] LABS: Red Cell Distribution Width 15.6 % (11.5-14.5)
[2021-03-23 04:14] LABS: Hematocrit 23.7 % (37.5-50.1); Immature Platelets 2.8 % (1.1-6.1); Lymphocytes # 0.3 K/mcL (0.6-4.6); Lymphocytes % 28.6 %; Mean Corpuscular HGB Conc 33.8 g/dL (31.6-35.5); Mean Corpuscular Hemoglobin 29.7 pg (28.0-33.3); Mean Corpuscular Volume 88.1 fL (83.0-100.0); Mean Platelet Volume 10.8 fL (9.4-12.4); Monocytes # 0.1 K/mcL (0.0-1.3); Monocytes % 6.1 %; Neutrophils # 0.6 K/mcL (1.6-8.9); Red Blood Count 2.69 M/mcL (4.19-5.50); Segmented Neutrophils % 63.3 %
[2021-03-23 04:16] LABS: Platelet Count 36 K/mcL (140-400)
[2021-03-23 04:26] LABS: BUN/Creatinine Ratio 32 (6-26); Blood Urea Nitrogen 23 mg/dL (6-20); Calcium 8.1 mg/dL (8.6-10.3); Carbon Dioxide 26 mEq/L (23-29); Chloride 102 mEq/L (98-107); Glucose 122 mg/dL (70-105); Osmolality,Calculated 275 (280-300); Potassium 3.9 mEq/L (3.5-5.1); Sodium 130 mEq/L (136-145); eGFR For African Americans > 60 (> 60); eGFR For Non-African Americans > 60 (> 60)
[2021-03-23 04:29] LABS: Platelet Estimate Decreased (Normal)
[2021-03-23] MEDS: Sulfamethoxazole/Trimeth SS 1 TAB PO SCH (08:15)
[2021-03-23] MEDS: levoFLOXacin 500 MG TABLET PO SCH (08:16)
[2021-03-23] MEDS: Gabapentin 300 MG CAPSULE PO SCH ×2 (08:16→14:02)
[2021-03-23 15:09] VITALS: BP 110/73; PULSE 95; TEMP 99.2; O2SAT 98
== END 2021-03-23 16:25 | disposition short-term general hospital (02) | DRG 710 ==
LOC: 3ANU 12:04 → EMEROOARM 12:04 → SUATTDRO 19:54 → 3ANU 20:55 → SUATTDRO 03-13 14:17
PROVIDERS: ADMIT Student in an Organized Health Care Education/Training Program; ATTEND Internal Medicine
PROC: IRLYMPH (2021-03-14 12:00)